=== PATIENT | female | born 2000 | race Two or more races ===

== ENCOUNTER 2019-07-22 15:58 | Emergency (ER) | payer OTHER ==
[~2019-07-22] VITALS: Ht 167.6 cm; Wt 113.4 kg
== END 2019-07-22 20:51 | disposition home or self-care (01) ==
LOC: ER 15:58
DX: N39.0 Urinary tract infection, site not specified (principal)

== ENCOUNTER 2019-08-17 21:30 | Emergency (ER) | payer OTHER ==
[~2019-08-17] VITALS: Ht 167.6 cm; Wt 109.3 kg
== END 2019-08-18 01:58 | disposition home or self-care (01) ==
LOC: ER 21:30
DX: O26.892 Other specified pregnancy related conditions, second trimester (principal); R10.2 Pelvic and perineal pain

== ENCOUNTER 2019-09-26 18:23 | Outpatient (CLI) | payer OTHER ==
[2019-09-26] MEDS ORDERED: PRENATAL TABLE1 EAC1 PO (19:30)
== END 2019-09-27 12:22 | disposition home or self-care (01) ==
LOC: OBS/DEL 18:23
DX: O26.892 Other specified pregnancy related conditions, second trimester (principal); Z3A.20 20 weeks gestation of pregnancy

== ENCOUNTER → 2019-10-13 | Outpatient (CLI) | payer OTHER ==
[~2019-10-13] MED LIST: PRENATAL TABLE1 EAC1 PO
== END | disposition home or self-care (01) ==
LOC: PRENATAL 10-09 14:00
DX: O35.3XX1 Maternal care for (suspected) damage to fetus from viral disease in mother, fetus 1 (principal); O99.89 Other specified diseases and conditions complicating pregnancy, childbirth and the puerperium; O99.212 Obesity complicating pregnancy, second trimester

== ENCOUNTER 2024-03-26 15:59 | Outpatient (CLI) | payer OTHER | END 2024-03-26 16:05 | disposition home or self-care (01) | LOC: PRENATAL 15:59 | PROVIDERS: ATTEND Obstetrics & Gynecology Maternal & Fetal Medicine | DX: O35.3XX0 Maternal care for (suspected) damage to fetus from viral disease in mother, not applicable or unspecified (principal); O44.00 Complete placenta previa NOS or without hemorrhage, unspecified trimester; O34.219 Maternal care for unspecified type scar from previous cesarean delivery; O99.210 Obesity complicating pregnancy, unspecified trimester; Z3A.22 22 weeks gestation of pregnancy ==

== ENCOUNTER 2024-05-06 09:13 | Outpatient (CLI) | payer OTHER | END 2024-05-06 09:14 | disposition home or self-care (01) | LOC: PRENATAL 09:13 | PROVIDERS: ATTEND Obstetrics & Gynecology Maternal & Fetal Medicine | DX: O26.849 Uterine size-date discrepancy, unspecified trimester (principal); O36.8199 Decreased fetal movements, unspecified trimester, other fetus; O99.210 Obesity complicating pregnancy, unspecified trimester; O34.219 Maternal care for unspecified type scar from previous cesarean delivery; Z3A.28 28 weeks gestation of pregnancy ==

== ENCOUNTER → 2024-06-10 | Outpatient (CLI) | payer OTHER | END | disposition home or self-care (01) | LOC: PRENATAL 15:07 | PROVIDERS: ATTEND Obstetrics & Gynecology Maternal & Fetal Medicine | DX: O26.849 Uterine size-date discrepancy, unspecified trimester (principal); O36.8199 Decreased fetal movements, unspecified trimester, other fetus; O34.219 Maternal care for unspecified type scar from previous cesarean delivery; O99.210 Obesity complicating pregnancy, unspecified trimester; Z3A.34 34 weeks gestation of pregnancy ==